=== PATIENT | female | born 1965 | race Caucasian/White ===

== ENCOUNTER 2022-01-20 20:38 | Observation (INO) ==
[2022-01-20 21:20] LABS: Basophils # (auto) 0.08 K/uL (0-0.2); Eosinophils # (auto) 0.01 K/uL (0-0.50); Eosinophils % (auto) 0.2 %; Hematocrit (blood only) 43.4 % (34.1-44.9); Hemoglobin 14.5 g/dl (12.0-16.0); Lymphocytes # (auto) 1.29 K/uL (1.2-3.4); Lymphocytes % (auto) 32.1 %; Mean Corpuscular Hemoglobin 27.6 pg (25.0-34.0); Mean Corpuscular Hgb Conc 33.4 g/dL (32.0-36.0); Mean Corpuscular Volume 82.5 fL (80.0-100.0); Monocytes % (auto) 12.4 %; Neutrophils # (auto) 2.14 K/uL (1.4-6.5); Neutrophils % (auto) 53.3 %; Platelet Count 193 K/uL (130-400); RDW Coefficient of Variation 13.2 % (11.5-14.5); RDW Standard Deviation 39.7 fL (36.4-46.3); Red Blood Count 5.26 M/uL (3.93-5.22); White Blood Count 4.02 K/ul (4.8-10.8)
[2022-01-20 21:41] LABS: Albumin Globulin Ratio 1.3 (0.9-2); Albumin Level 4.3 gm/dl (3.4-5.0); BUN Creatinine Ratio 10.9 (10-20); Bilirubin,Total 0.5 mg/dl (0.2-1.0); Calcium 9.3 mg/dl (8.5-10.1); Creatinine Clr Calc Pharmacy 69.9 ml/min; Est GFR (African American) 71.1 ml/min; Est GFR (Non-African American) 61.3 ml/min; Globulin 3.2 gm/dl (2.5-4.0); Potassium 3.7 mmol/L (3.5-5.1); Total Protein 7.5 gm/dl (6.0-8.3)
[2022-01-20 21:52] LABS: Appearance Urine Clear (Clear); Bacteria Urine Automated Negative (Negative); Bilirubin Urine Negative (Negative); Blood Urine Trace (Negative); Color Urine Yellow; Epithelial Cell Urine Auto 20-30 /lpf (0-5); Glucose Urine UA Negative (Negative); Ketones Urine 2+ (Negative); Leukocyte Esterase Urine Negative (Negative); Nitrite Urine Negative (Negative); Protein Urine Negative (Negative); Urobilinogen Urine Negative (Negative); pH Urine 5.5 (4.5-7.5)
[2022-01-20] MEDS ORDERED: SODIUM CHLORIDE 0.9% 1000ML 1,000 ML IV ONE (21:53)
[2022-01-20 22:07] LABS: RBC Urine Automated 0-4 /hpf (0-4)
[2022-01-20] MEDS ORDERED: ACETAMINOPHEN 1,000 MG/100 ML VIAL IV STA (22:17)
[2022-01-20] MEDS ORDERED: FAMOTIDINE 20MG IV PUSH 20 MG/5 ML SYR IV STA (22:17)
[2022-01-20] MEDS ORDERED: ONDANSETRON INJ 2 MG/ML 2 ML VIAL IV STA (22:17)
--- NOTE | 2022-01-20 22:30 | XRay Report ---
XR chest 1V portable HISTORY: 56 years-old Female fever, cough acute cough with fever COMPARISON: Chest radiograph 01/07/2018 TECHNIQUE: Portable AP view of the chest FINDINGS: The cardiomediastinal and hilar silhouettes are within normal limits. No pneumothorax, pleural effusi on, airspace consolidation or overt pulmonary edema. The bones of the chest appear grossly intact. IMPRESSION: No acute process. ACT 112: Negative or not required by law. The above report was generated using voice recognition software. It may contain grammatical, syntax o r spelling errors. Electronically signed by: Misha Lantigua M.D. 01/20/2022 10:28 PM
[2022-01-20] MEDS ORDERED: OPTIRAY 320 100ml IV ONE (22:53)
--- NOTE | 2022-01-20 23:22 | CT Scan Report ---
ABDOMEN AND PELVIS CT WITH IV CONTRAST CT DOSE: 823.34 mGy.cm HISTORY: Acute fever with nausea, vomiting and diarrhea fever, n/v/d TECHNIQUE: Multiaxial CT images of the abdomen and pelvis were performed following the IV administrat ion of 94 cc of Optiray, A dose lowering technique was utilized adhering to the principles of ALARA. COMPARISON STUDY: None. FINDINGS: Lung bases are generally clear. No pneumatosis or pneumoperitoneum. Unremarkable spleen, pa ncreas and adrenal glands. Distended gallbladder with subcentimeter dependent gallstone versus polyp. The gallbladder wall appears to measure within the upper limits of normal. No pericholecystic infilt ration. Unremarkable liver. Patency of the hepatic and portal veins. No hydronephrosis. Mild nonspecific urinary bladder wall thickening. The uterus and left adnexum. Unr emarkable. Fatty attenuating structure within the right hemipelvis measuring 3.6 cm is suggestive of an ovarian dermoid. There is no abdominal aortic aneurysm or lymphadenopathy. Tiny hiatal hernia. No bowel obstruction or bowel wall thickening. The appendix is fluid-filled and m easures the upper limits of normal at 6 mm. No periappendiceal inflammation. Tiny fat filled periumbi lical hernia. Unremarkable soft tissues. No acute fracture. Probable bone island of the right pubic b one. IMPRESSION: 1. The appendix is fluid-filled and measures within the upper limits of normal at 6 mm. No periappend iceal inflammation. Correlate with patient history and clinical exam findings to exclude early acute appendicitis. 2. Distended gallbladder with a subcentimeter dependent gallstone versus polyp and equivocal wall thi ckening. These findings could be correlated with ultrasound. 3. No bowel obstruction. 4. 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 ACT 112: Negative or not required by law. The above report was generated using voice recognition software. It may contain grammatical, syntax o r spelling errors. Electronically signed by: Misha Lantigua M.D. 01/20/2022 11:19 PM
[2022-01-21] MEDS ORDERED: cefOXitin 2,000 MG/60 ML BAG IV STA (00:20)
--- NOTE | 2022-01-21 01:08 | Emergency Department Note ---
Impression & Plan COVID, Gastroenteritis, Abnormal CT scan, gastrointestinal tract, Abnormal CT scan, gallbladder ED Provider Note NAME: ASHLEY PARHAM AGE: 56 SEX: F ARRIVES VIA: Walk-In INFORMANT: Patient ED PROVIDER(S): Gee Goodwin MD CHIEF COMPLAINT: Abdominal pain, n/v/d. PLAN: Disposition: Admit MEDICAL DECISION MAKING: The patient is a pleasant 56-year-old woman with a past medical history of hypertension who presents to the emergency department accompanied by her for evaluation of symptoms of fever, body aches, nausea and vomiting, cough/co ngestion, and several episodes of loose stool that began today with constellation of symptoms that began on . Patient reports she is vaccinated for COVID-19 including her booster. She denies any known COVID-19 exposures. Her pcp prescribed Bactrim for suspected UTI 2/2 urinary urgency. On arrival the patient is fatigued appearing but no acute distress, afebrile with stable vital signs. She appears clinically dry. Abdominal exam initially demonstrated generalized abdominal tenderness without guarding or rebound. WBC 4K, nonspecific. H/H and platelets within normal limits. Chemistry without metabolic acidosis. Electrolytes LFTs without significant abnormality. Lipase is within normal limits. Procalcitonin is not elevated. UA with 2+ ketones consistent with the patient's clinical dry appearance. Otherwise no convincing evidence of infection. The patient's COVID-[address] of the abdomen pelvis demonstrates fluid-filled appendix measuring within the upper limits of normal at 6 mm but without periappendiceal inflammation. Early appendicitis is considered. Note is also made of a distended gallbladder with dependent gallstone versus polyp with equivocal thickening but no pericholecystic fluid. Incidental note is made of a 3.6 cm right ovarian dermo id. Upon reevaluation the patient now had more isolated/point tenderness in the right lower quadrant and so possibility of appendicitis still exists even with her COVID-19 infection which is suspected to be contributing to her gastroenteritis. Case was discussed with general surgery on-call, Dr. Tellez, who agrees with plan for admission to medicine service for further monitoring and while symptoms are less likely to be appendicitis agrees that this cannot be completely excluded at this time. The patient and her at the bedside agree with plan for admission Case was discussed with Dr. Marcos, [facility] hospitalist, who will evaluate the patient for admission. Triage Nursing notes reviewed and agree them. Prior medical records reviewed Vital Signs: reviewed and remarkable for no significant abnormalities Differential diagnosis: Gastroenteritis, food borne illness, infections, appendicitis, diverticulitis, inflammatory bowel disease, obstruction, GI bleed, biliary pathology, volvulus, as well as other pathologies. ER treatment provided: See below. Diagnostics interpreted by me: Cardiac Monitoring: An order for continuous cardiac monitoring was placed and demonstrated NSR, 82 bpm, no ectopy. Laboratory studies: See below Imaging studies: See below Consultation(s): Dr. Tellez, General surgery on-call. Dr. Marcos, [facility] hospitalist HPI: The patient is a pleasant 56-year-old woman with a past medical history of hypertension who presents to the emergency department accompanied by her for evaluation of symptoms of fever, body aches, nausea and vomiting, cough/congestion, and several episodes of loose stool that began today with constellation of symptoms that began on . Patient reports she is vaccinated for COVID-19 including her booster. She denies any known COVID-19 exposures. Her pcp prescribed Bactrim for suspected UTI 2/2 urinary urgency. ROS: See above HPI for pertinent positives & negatives. A total of 10 systems reviewed and were otherwise negative. VITALS:See Below PHYSICAL EXAMINATION: GENERAL: Awake, alert, uncomfortable-appearing, in no distress HENT: Normocephalic, atraumatic. Oropharynx with dry mucous membranes and otherwise unremarkable. EYES: Normal conjunctiva. Sclera non-icteric. NECK: Supple. No nuchal rigidity. FROM. No JVD. RESPIRATORY: Clear to auscultation. CARDIAC: Regular rate, normal rhythm. Extremities warm and well perfused. Pulses equal. ABDOMEN: Soft, non-distended. Generalized abdominal tenderness initially then with point RLQ tenderness without guarding or rebound. RECTAL: Deferred. MUSCULOSKELETAL: Chest examination reveals no tenderness. The back is sy mmetrical on inspection without obvious abnormality. There is no CVA tenderness to palpation. No joint edema. LOWER EXTREMITIES: Calves are equal size bilaterally and non-tender. No edema. No discoloration. NEURO: Normal sensorium. No sensory or motor deficits noted. SKIN: No rash or jaundice noted. Gee Goodwin MD Past Med/Surg History Medical History Gallstone HTN (hypertension) Family History Other Family history non-contributory Social History Smoking Status: Never smoker Hx Alcohol Use: Yes Alcohol type: hard liquor Hx Substance Use: No Preferred Language: Polish Communication Ability: Effective Medical Radiation Therapist Required: No Beliefs That Will Affect Care: None Current Living Situation: Spouse Other Information That Helps Us Care for You: No Feels Safe at Home: Yes Safety Concerns: Feels Safe At This Time Assistive Devices: Denture - Upper, Denture - Lower and Glasses Allergies Allergies Allergy/AdvReac Type Severity Reaction Status Date / Time No Known Allergies Allergy Verified 01/07/18 13:22 Home Meds Home Medications Medication Instructions Recorded Confirmed Duloxetine HCl (Cymbalta) 20 mg PO DAILY 30 days #30 caps 01/07/18 Lisinopril (Zestril) 5 mg PO DAILY #0 tabs 01/07/18 Results & Data (ED) Vital Signs Vital Signs - 24 hr 01/20/22 23:30 01/21/22 00:00 Pulse Rate [Finger] 54 L 54 L Respiratory Rate 18 18 Respiratory Effort / Characteristics Non-Labored Spontaneous Respiratory Depth Normal Blood Pressure [Right Arm] 133/97 152/77 H Blood Pressure Mean [Right Arm] 109 102 Pulse Oximetry 94 95 Oxygen Delivery Method Room Air Room Air Laboratory Data Attestation: I reviewed the patient's lab results. Result diagrams: 01/21/22 06:02 01/21/22 06:02 Lab Results 01/20/22 01/20/22 01/20/22 Range/Units 21:00 21:00 21:00 WBC 4.02 L (4.8-10.8) K/ul RBC 5.26 H (3.93-5.22) M/uL Hgb 14.5 (12.0-16.0) g/dl Hct 43.4 (34.1-44.9) % MCV 82.5 (80.0-100.0) fL MCH 27.6 (25.0-34.0) pg MCHC 33.4 (32.0-36.0) g/dL RDW Std Deviation 39.7 (36.4-46.3) fL RDW Coeff of Susan 13.2 (11.5-14.5) % Plt Count 193 (130-400) K/uL MPV 10.0 (9.4-12.3) fL Immature Gran % (Auto) 0.0 % Neut % (Auto) 53.3 % Lymph % (Auto) 32.1 % [place] % (Auto) 12.4 % Eos % (Auto) 0.2 % Baso % (Auto) 2.0 % Neut # (Auto) 2.14 (1.4-6.5) K/uL Lymph # (Auto) 1.29 (1.2-3.4) K/uL [place] # (Auto) 0.50 (0.24-0.82) K/uL Eos # (Auto) 0.01 (0-0.50) K/uL Baso # (Auto) 0.08 (0-0.2) K/uL Immature Gran # (Auto) 0.00 (0.00-0.02) K/uL Sodium 135 L (136-145) mmol/L Potassium 3.7 (3.5-5.1) mmol/L Chloride 101 (98-107) mmol/L Carbon Dioxide 23 (21-32) mmol/L Anion Gap 11 (3-11) BUN 11 (6-23) mg/dl Creatinine 1.01 (0.6-1.2) mg/dl Est Cr Clr Drug Dosing 69.9 ml/min Est GFR ( Amer) 71.1 ml/min Est GFR (Non-Af Amer) 61.3 ml/min BUN/Creatinine Ratio 10.9 (10-20) Glucose 87 (70-99(Fasting)) mg/dl Lactate (0.4-2.0) mmol/L Calcium 9.3 (8.5-10.1) mg/dl Total Bilirubin 0.5 (0.2-1.0) mg/dl AST 18 (13-39) U/L ALT 15 (7-52) U/L Alkaline Phosphatase 93 (34-104) U/L Total Protein 7.5 (6.0-8.3) gm/dl Albumin 4.3 (3.4-5.0) gm/dl Globulin 3.2 (2.5-4.0) gm/dl Albumin/Globulin Ratio 1.3 (0.9-2) Lipase 12 (11-82) U/L Procalcitonin (0-0.5) ng/ml Urine Color Yellow Urine Appearance Clear (Clear) Urine pH 5.5 (4.5-7.5) Ur Specific Essie 1.020 (1.000-1.030) Urine Protein Negative (Negative) Urine Glucose (UA) Negative (Negative) Urine Ketones 2+ H (Negative) Urine Blood Trace H (Negative) Urine Nitrite Negative (Negative) Urine Bilirubin Negative (Negative) Urine Urobilinogen Negative (Negative) Ur Leukocyte Esterase Negative (Negative) Urine WBC (Auto) 1-5 (0-5) /hpf Urine RBC (Auto) 0-4 (0-4) /hpf U Hyaline Cast (Auto) 1-5 (0-5) /lpf U Epithel Cells (Auto) 20-30 H (0-5) /lpf Urine Bacteria (Auto) Negative (Negative) SARS-CoV-2 (PCR) (Negative) 01/20/22 01/20/22 01/21/22 Range/Units 21:00 23:15 00:40 WBC (4.8-10.8) K/ul RBC (3.93-5.22) M/uL Hgb (12.0-16.0) g/dl Hct (34.1-44.9) % MCV (80.0-100.0) fL MCH (25.0-34.0) pg MCHC (32.0-36.0) g/dL RDW Std Deviation (36.4-46.3) fL RDW Coeff of Susan (11.5-14.5) % Plt Count (130-400) K/uL MPV (9.4-12.3) fL Immature Gran % (Auto) % Neut % (Auto) % Lymph % (Auto) % [place] % (Auto) % Eos % (Auto) % Baso % (Auto) % Neut # (Auto) (1.4-6.5) K/uL Lymph # (Auto) (1.2-3.4) K/uL [place] # (Auto) (0.24-0.82) K/uL Eos # (Auto) (0-0.50) K/uL Baso # (Auto) (0-0.2) K/uL Immature Gran # (Auto) (0.00-0.02) K/uL Sodium (136-145) mmol/L Potassium (3.5-5.1) mmol/L Chloride (98-107) mmol/L Carbon Dioxide (21-32) mmol/L Anion Gap (3-11) BUN (6-23) mg/dl Creatinine (0.6-1.2) mg/dl Est Cr Clr Drug Dosing ml/min Est GFR ( Amer) ml/min Est GFR (Non-Af Amer) ml/min BUN/Creatinine Ratio (10-20) Glucose (70-99(Fasting)) mg/dl Lactate 0.7 (0.4-2.0) mmol/L Calcium (8.5-10.1) mg/dl Total Bilirubin (0.2-1.0) mg/dl AST (13-39) U/L ALT (7-52) U/L Alkaline Phosphatase (34-104) U/L Total Protein (6.0-8.3) gm/dl Albumin (3.4-5.0) gm/dl Globulin (2.5-4.0) gm/dl Albumin/Globulin Ratio (0.9-2) Lipase (11-82) U/L Procalcitonin 0.11 (0-0.5) ng/ml Urine Color Urine Appearance (Clear) Urine pH (4.5-7.5) Ur Specific Essie (1.000-1.030) Urine Protein (Negative) Urine Glucose (UA) (Negative) Urine Ketones (Negative) Urine Blood (Negative) Urine Nitrite (Negative) Urine Bilirubin (Negative) Urine Urobilinogen (Negative) Ur Leukocyte Esterase (Negative) Urine WBC (Auto) (0-5) /hpf Urine RBC (Auto) (0-4) /hpf U Hyaline Cast (Auto) (0-5) /lpf U Epithel Cells (Auto) (0-5) /lpf Urine Bacteria (Auto) (Negative) SARS-CoV-2 (PCR) POSITIVE A* (Negative) Administered Medications Acetaminophen (Acetaminophen 325 Mg Tab) 650 mg PO Q4H PRN PRN Reason: Pain Stop: 02/20/22 11:32 Last Admin: 01/21/22 12:00 Dose: 650 mg Documented By: ERICA Ceftriaxone Sodium 2,000 mg/ (Dextrose) 70 mls @ 100 mls/hr IV DAILY ANTELMO; Protocol Stop: 01/31/22 08:59 Last Infusion: 01/21/22 11:23 Dose: 0 mls/hr Documented By: Admin: 01/21/22 10:39 Dose: 100 mls/hr Documented By: CR Lactated Ringer's (Lr) 1,000 mls @ 80 mls/hr IV .[id number] ANTELMO Stop: 02/20/22 04:02 Last Admin: 01/21/22 17:24 Dose: 80 mls/hr Documented By: Infusion: 01/21/22 17:24 Dose: 80 mls/hr Documented By: Infusion: 01/21/22 11:23 Dose: 80 mls/hr Documented By: Infusion: 01/21/22 10:41 Dose: 0 mls/hr Documented By: Admin: 01/21/22 04:44 Dose: 80 mls/hr Documented By: DANIEL Famotidine 20 mg/ Syringe 5 mls @ 2.5 mls/min IV Q12H ANTELMO Stop: 02/20/22 08:59 Last Admin: 01/21/22 20:57 Dose: 2.5 mls/min Documented By: Admin: 01/21/22 10:39 Dose: 2.5 mls/min Documented By: ERICA Ondansetron HCl (Ondansetron Inj 2 Mg/Ml 2 Ml Vial) 4 mg IV Q6H PRN PRN Reason: Nausea Stop: 02/20/22 04:02 Last Admin: 01/21/22 17:32 Dose: 4 mg Documented By: ERICA Discontinued Medications Sodium Chloride (Nss 1000ml) 1,000 mls @ 999 mls/hr IV .[id number] ONE Stop: 01/20/22 22:53 Last Infusion: 01/21/22 00:17 Dose: 0 mls/hr Documented By: Admin: 01/20/22 23:23 Dose: 999 mls/hr Documented By: CATHY Acetaminophen (Ofirmev) 1,000 mg in 100 mls @ 400 mls/hr IV NOW STA Stop: 01/20/22 22:31 Last Infusion: 01/21/22 00:16 Dose: 0 mls/hr Documented By: Admin: 01/20/22 23:24 Dose: 400 mls/hr Documented By: BS Famotidine (Pepcid 20mg Iv Push) 20 mg in 5 mls @ 2.5 mls/min IV NOW STA Stop: 01/20/22 22:18 Last Admin: 01/20/22 22:28 Dose: 2.5 mls/min Documented By: BS Cefoxitin Sodium (Mefoxin) 2,000 mg in 60 mls @ 100 mls/hr IV NOW STA Stop: 01/21/22 00:55 Last Infusion: 01/21/22 04:18 Dose: 0 mls/hr Documented By: Admin: 01/21/22 00:56 Dose: 100 mls/hr Documented By: BS Ioversol (Optiray 320 100ml) 94 ml IV ONCE ONE Stop: 01/20/22 22:54 Last Admin: 01/20/22 22:53 Dose: 94 ml Documented By: ALICIA Ondansetron HCl (Ondansetron Inj 2 Mg/Ml 2 Ml Vial) 4 mg IV NOW STA Stop: 01/20/22 22:18 Last Admin: 01/20/22 22:28 Dose: 4 mg Documented By: CATHY Imaging Data Radiologist's Impression: Abdomen/Pelvis CT 01/20/22 22:[address] WITH IV CONTRAST CT DOSE: 823.34 mGy.cm HISTORY: Acute fever with nausea, vomiting and diarrhea fever, n/v/d TECHNIQUE: Multiaxial CT images of the abdomen and pelvis were performed following the IV administration of 94 cc of Optiray, A dose lowering technique was utilized adhering to the principles of ALARA. COMPARISON STUDY: None. FINDINGS: Lung bases are generally clear. No pneumatosis or pneumoperitoneum. Unremarkable spleen, pancreas and adrenal glands. Distended gallbladder with subcentimeter dependent gallstone versus polyp. The gallbladder wall appears to measure within the upper limits of normal. No pericholecystic infiltration. Unremarkable liver. Patency of the hepatic and portal veins. No hydronephrosis. Mild nonspecific urinary bladder wall thickening. The uterus and left adnexum. Unremarkable. Fatty attenuating structure within the right hemipelvis measuring 3.6 cm is suggestive of an ovarian dermoid. There is no abdominal aortic aneurysm or lymphadenopathy. Tiny hiatal hernia. No bowel obstruction or bowel wall thickening. The appendix is fluid-filled and measures the upper limits of normal at 6 mm. No periappendiceal inflammation. Tiny fat filled periumbilical hernia. Unremarkable soft tissues. No acute fracture. Probable bone island of the right pubic bone. IMPRESSION: 1. The appendix is fluid-filled and measures within the upper limits of normal at 6 mm. No periappendiceal inflammation. Correlate with patient history and clinical exam findings to exclude early acute appendicitis. 2. Distended gallbladder with a subcentimeter dependent gallstone versus polyp and equivocal wall thickening. These findings could be correlated with ultrasound. 3. No bowel obstruction. 4. 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 ACT 112: Negative or not required by law. The above report was generated using voice recognition software. It may contain grammatical, syntax or spelling errors. Electronically signed by: Misha Lantigua M.D. 01/20/2022 11:19 PM Chest X-Ray 01/20/22 22:17 XR chest 1V portable HISTORY: 56 years-old Female fever, cough acute cough with fever COMPARISON: Chest radiograph 01/07/2018 TECHNIQUE: Portable AP view of the chest FINDINGS: The cardiomediastinal and hilar silhouettes are within normal limits. No pneumothorax, pleural effusion, airspace consolidation or overt pulmonary edema. The bones of the chest appear grossly intact. IMPRESSION: No acute process. ACT 112: Negative or not required by law. The above report was generated using voice recognition software. It may contain grammatical, syntax or spelling errors. Electronically signed by: Misha Lantigua M.D. 01/20/2022 10:28 PM Discharge Plan Visit Data Chief Complaint: Abdominal Pain Stated Complaint: ABDOMINAL PAIN, DIARRHEA, VOMITING ED Provider: Gee Goodwin Discharge Problem: COVID, Gastroenteritis, Abnormal CT scan, gastrointestinal tract, Abnormal CT scan, gallbladder Patient Disposition: Admitted As Inpatient Discharge Instructions Interventions: ED Discharge Assessment Last Done: 01/21/22 03:25
--- NOTE | 2022-01-21 02:08 | History & Physical Report ---
Date of Service January 21, 2022 Assessment & Plan (1) Nausea, vomiting and diarrhea: Plan: Nausea, vomiting, diarrhea/with abdominal pain right upper quadrant Across epigastrium to left upper quadrant- CT scan shows appendix to be fluid-filled and measured within the upper limits of normal at 6 mm with no periappendiceal inflammation but with suggestion to assess clinical exam findings to exclude early acute appendicitis. CT scan also showed distended gallbladder with a subcentimeter dependent gallstone versus polyp and equivocal wall thickening, with findings to be correlated with ultrasound. There was no bowel obstruction. There was a 3.6 cm right ovarian dermoid. NPO Order ultrasound right upper quadrant of abdomen Order HIDA scan Ceftriaxone 2 g IV every 24 hours. Zofran 4 mg IV every 6 hours as needed Famotidine 20 mg IV every 12 hours (2) Abdominal pain: Plan: See above (3) HTN (hypertension): Plan: Hold lisinopril (4) Migraines: Plan: Hold duloxetine (5) Paresthesia: Plan: Hold duloxetine (6) Abnormal CT scan, gallbladder: Plan: Ordering ultrasound as noted (7) Abnormal CT scan, gastrointestinal tract: Plan: ED physician contacted general surgery, who felt this was not an early appendicitis, and asked that the patient be admitted to medicine History of Present Illness Chief Complaint: The patient presents to the emergency department with complaint of right upper quadrant pain extending across epigastrium to left side of abdomen, nausea and vomiting, for 2 days, several episodes of loose stools that began today. Primary Care Provider: Lizbeth Pierce MD The patient is a 56-year-old female with a past medical history including hypertension, migraines, paresthesias, headaches who presents with symptoms as noted above. She denies any recent travels or sick exposures. She denies any unusual ingestions of food or liquids. Significant abnormal imaging: CT of abdomen pelvis shows a distended gallbladder with dependent gallstone with suggestion for verification with ultrasound. There is also a 3.6 cm right ovarian dermoid cyst. Chest x-ray was negative. Ultrasound of the right upper quadrant has been ordered and is pending. Patient was given follow treatment by the ED: Cefoxitin 2 g IV, normal saline 1 L bolus, Tylenol 1 g IV, famotidine 20 mg IV. Significant abnormal laboratories: Patient was COVID-19 positive Allergies Allergy/AdvReac Type Severity Reaction Status Date / Time No Known Allergies Allergy Verified 01/07/18 13:22 Home Medications Medication Instructions Recorded Confirmed Type Duloxetine HCl (Cymbalta) 20 mg PO DAILY 30 days #30 caps 01/07/18 History Lisinopril (Zestril) 5 mg PO DAILY #0 tabs 01/07/18 History Past Med/Surg History Social History Smoking Status: Never smoker Hx Alcohol Use: Yes Alcohol type: hard liquor Hx Substance Use: No Preferred Language: Lao Communication Ability: Effective Residential Nurse Required: No Beliefs That Will Affect Care: None Current Living Situation: Spouse Other Information That Helps Us Care for You: No Feels Safe at Home: Yes Safety Concerns: Feels Safe At This Time Assistive Devices: Denture - Upper, Denture - Lower and Glasses Review of Systems Review of Systems: The patient denies chest pain, palpitations, shortness of breath, dyspnea on exertion, cough, lower extremity swelling, blood in urine or stool, dysuria, urinary frequency or urgency, lightheadedness, dizziness, headache, memory loss, loss of consciousness, rash, abnormal bruising or bleeding, imbalance, focal or generalized weakness, numbness or tingling in arms or legs, generalized arthralgias or myalgias, back or neck pain, or night sweats. The review of systems is otherwise negative other than for that already noted above, and at least 10 systems have been reviewed. Physical Exam Physical Exam: The patient is awake, alert and oriented 3, well developed and well nourished, normocephalic and atraumatic, lying in bed and in no acute distress. HEENT--PERRL, EOMI, mucous membranes and oropharynx dry. Neck--supple. No JVD. No bruits. Thyroid normal, trachea midline, no adenopathy. Heart--normal S1 and S2. No murmurs, rubs or gallops. Lungs--clear bilaterally, no respiratory distress, no accessory muscle use. Abdomen--normal bowel sounds and soft. Mild tenderness from right upper quadrant across epigastrium. Nondistended, no hernias or masses, no organomegaly. Extremities--no cyanosis or clubbing. No edema. Dermatologic--normal skin turgor, normal color, no abnormal lymph nodes, no rash. Neurologic--cranial nerves II through XII grossly intact. Rheumatologic--normal range of motion. Psychiatric--normal affect. Results & Data Results & Data ([facility]) Vital Signs (Past 12 Hours) Vital Signs Temp Pulse Pulse Resp BP Pulse Ox O2 Del Method 01/21/22 00:00 54 L 18 152/77 H 95 Room Air 01/20/22 23:30 54 L 18 133/97 94 Room Air 01/20/22 22:55 58 L 22 172/75 H 95 Room Air 01/20/22 20:42 36.2 C L 82 20 97 Room Air Laboratory Results Laboratory Results WBC 4.02 K/ul (4.8-10.8) L 01/20/22 21:00 RBC 5.26 M/uL (3.93-5.22) H 01/20/22 21:00 Hgb 14.5 g/dl (12.0-16.0) 01/20/22 21:00 Hct 43.4 % (34.1-44.9) 01/20/22 21:00 MCV 82.5 fL (80.0-100.0) 01/20/22 21:00 MCH 27.6 pg (25.0-34.0) 01/20/22 21:00 MCHC 33.4 g/dL (32.0-36.0) 01/20/22 21:00 RDW Std Deviation 39.7 fL (36.4-46.3) 01/20/22 21:00 RDW Coeff of Susan 13.2 % (11.5-14.5) 01/20/22 21:00 Plt Count 193 K/uL (130-400) 01/20/22 21:00 MPV 10.0 fL (9.4-12.3) 01/20/22 21:00 Immature Gran % (Auto) 0.0 % 01/20/22 21:00 Neut % (Auto) 53.3 % 01/20/22 21:00 Lymph % (Auto) 32.1 % 01/20/22 21:00 Liberty % (Auto) 12.4 % 01/20/22 21:00 Eos % (Auto) 0.2 % 01/20/22 21:00 Baso % (Auto) 2.0 % 01/20/22 21:00 Neut # (Auto) 2.14 K/uL (1.4-6.5) 01/20/22 21:00 Lymph # (Auto) 1.29 K/uL (1.2-3.4) 01/20/22 21:00 Liberty # (Auto) 0.50 K/uL (0.24-0.82) 01/20/22 21:00 Eos # (Auto) 0.01 K/uL (0-0.50) 01/20/22 21:00 Baso # (Auto) 0.08 K/uL (0-0.2) 01/20/22 21:00 Immature Gran # (Auto) 0.00 K/uL (0.00-0.02) 01/20/22 21:00 Sodium 135 mmol/L (136-145) L 01/20/22 21:00 Potassium 3.7 mmol/L (3.5-5.1) 01/20/22 21:00 Chloride 101 mmol/L (98-107) 01/20/22 21:00 Carbon Dioxide 23 mmol/L (21-32) 01/20/22 21:00 Anion Gap 11 (3-11) 01/20/22 21:00 BUN 11 mg/dl (6-23) 01/20/22 21:00 Creatinine 1.01 mg/dl (0.6-1.2) 01/20/22 21:00 Est Cr Clr Drug Dosing 69.9 ml/min 01/20/22 21:00 Est GFR ( Amer) 71.1 ml/min 01/20/22 21:00 Est GFR (Non-Af Amer) 61.3 ml/min 01/20/22 21:00 BUN/Creatinine Ratio 10.9 (10-20) 01/20/22 21:00 Glucose 87 mg/dl (70-99(Fasting)) 01/20/22 21:00 Lactate 0.7 mmol/L (0.4-2.0) 01/21/22 00:40 Calcium 9.3 mg/dl (8.5-10.1) 01/20/22 21:00 Total Bilirubin 0.5 mg/dl (0.2-1.0) 01/20/22 21:00 AST 18 U/L (13-39) 01/20/22 21:00 ALT 15 U/L (7-52) 01/20/22 21:00 Alkaline Phosphatase 93 U/L (34-104) 01/20/22 21:00 Total Protein 7.5 gm/dl (6.0-8.3) 01/20/22 21:00 Albumin 4.3 gm/dl (3.4-5.0) 01/20/22 21:00 Globulin 3.2 gm/dl (2.5-4.0) 01/20/22 21:00 Albumin/Globulin Ratio 1.3 (0.9-2) 01/20/22 21:00 Lipase 12 U/L (11-82) 01/20/22 21:00 Procalcitonin 0.11 ng/ml (0-0.5) 01/20/22 21:00 Urine Color Yellow 01/20/22 21:00 Urine Appearance Clear (Clear) 01/20/22 21:00 Urine pH 5.5 (4.5-7.5) 01/20/22 21:00 Ur Specific Victoria 1.020 (1.000-1.030) 01/20/22 21:00 Urine Protein Negative (Negative) 01/20/22 21:00 Urine Glucose (UA) Negative (Negative) 01/20/22 21:00 Urine Ketones 2+ (Negative) H 01/20/22 21:00 Urine Blood Trace (Negative) H 01/20/22 21:00 Urine Nitrite Negative (Negative) 01/20/22 21:00 Urine Bilirubin Negative (Negative) 01/20/22 21:00 Urine Urobilinogen Negative (Negative) 01/20/22 21:00 Ur Leukocyte Esterase Negative (Negative) 01/20/22 21:00 Urine WBC (Auto) 1-5 /hpf (0-5) 01/20/22 21:00 Urine RBC (Auto) 0-4 /hpf (0-4) 01/20/22 21:00 U Hyaline Cast (Auto) 1-5 /lpf (0-5) 01/20/22 21:00 U Epithel Cells (Auto) 20-30 /lpf (0-5) H 01/20/22 21:00 Urine Bacteria (Auto) Negative (Negative) 01/20/22 21:00 SARS-CoV-2 (PCR) POSITIVE (Negative) A* 01/20/22 23:15 Impressions Abdomen/Pelvis CT 01/20/22 22:[address] WITH IV CONTRAST CT DOSE: 823.34 mGy.cm HISTORY: Acute fever with nausea, vomiting and diarrhea fever, n/v/d TECHNIQUE: Multiaxial CT images of the abdomen and pelvis were performed following the IV administration of 94 cc of Optiray, A dose lowering technique was utilized adhering to the principles of ALARA. COMPARISON STUDY: None. FINDINGS: Lung bases are generally clear. No pneumatosis or pneumoperitoneum. Unremarkable spleen, pancreas and adrenal glands. Distended gallbladder with subcentimeter dependent gallstone versus polyp. The gallbladder wall appears to measure within the upper limits of normal. No pericholecystic infiltration. Unremarkable liver. Patency of the hepatic and portal veins. No hydronephrosis. Mild nonspecific urinary bladder wall thickening. The uterus and left adnexum. Unremarkable. Fatty attenuating structure within the right hemipelvis measuring 3.6 cm is suggestive of an ovarian dermoid. There is no abdominal aortic aneurysm or lymphadenopathy. Tiny hiatal hernia. No bowel obstruction or bowel wall thickening. The appendix is fluid-filled and measures the upper limits of normal at 6 mm. No periappendiceal inflammation. Tiny fat filled periumbilical hernia. Unremarkable soft tissues. No acute fracture. Probable bone island of the right pubic bone. IMPRESSION: 1. The appendix is fluid-filled and measures within the upper limits of normal at 6 mm. No periappendiceal inflammation. Correlate with patient history and clinical exam findings to exclude early acute appendicitis. 2. Distended gallbladder with a subcentimeter dependent gallstone versus polyp and equivocal wall thickening. These findings could be correlated with ultrasound. 3. No bowel obstruction. 4. 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 ACT 112: Negative or not required by law. The above report was generated using voice recognition software. It may contain grammatical, syntax or spelling errors. Electronically signed by: Misha Lantigua M.D. 01/20/2022 11:19 PM Chest X-Ray 01/20/22 22:17 XR chest 1V portable HISTORY: 56 years-old Female fever, cough acute cough with fever COMPARISON: Chest radiograph 01/07/2018 TECHNIQUE: Portable AP view of the chest FINDINGS: The cardiomediastinal and hilar silhouettes are within normal limits. No pneumothorax, pleural effusion, airspace consolidation or overt pulmonary edema. The bones of the chest appear grossly intact. IMPRESSION: No acute process. ACT 112: Negative or not required by law. The above report was generated using voice recognition software. It may contain grammatical, syntax or spelling errors. Electronically signed by: Misha Lantigua M.D. 01/20/2022 10:28 PM Code Status & VTE Plan Code Status Full code VTE Prophylaxis Plan VTE Prophylaxis will be ordered: Yes PG Care Time/CCT Total # of Minutes Spent Total Time Spent with Patient: Total time spent is greater than 50% in coordination of care (as documented) at patient's floor/unit and/or counseling patient: Coding Level of Care Code INT OBSERVATION CARE 70M LVL 3 Diagnoses Nausea, vomiting and diarrhea R11.2; R19.7 Abdominal pain R10.9 HTN (hypertension) I10 Migraines G43.[address] scan, gallbladder R93.[address] scan, gastrointestinal tract R93.3
[2022-01-21] MEDS ORDERED: ONDANSETRON INJ 2 MG/ML 2 ML VIAL IV PRN (04:03)
[2022-01-21] MEDS: LACTATED RINGER'S 1,000 ML IV SCH ×2 (04:44→17:24)
[2022-01-21 07:02] LABS: Basophils # (auto) 0.05 K/uL (0-0.2); Basophils % (auto) 1.6 %; Eosinophils # (auto) 0.03 K/uL (0-0.50); Hemoglobin 13.1 g/dl (12.0-16.0); Lymphocytes # (auto) 1.31 K/uL (1.2-3.4); Mean Corpuscular Hemoglobin 27.3 pg (25.0-34.0); Mean Corpuscular Volume 85.6 fL (80.0-100.0); Mean Platelet Volume 10.2 fL (9.4-12.3); Monocytes # (auto) 0.42 K/uL (0.24-0.82); Monocytes % (auto) 13.8 %; Neutrophils # (auto) 1.24 K/uL (1.4-6.5); Neutrophils % (auto) 40.6 %; Platelet Count 161 K/uL (130-400); RDW Coefficient of Variation 13.2 % (11.5-14.5); RDW Standard Deviation 41.6 fL (36.4-46.3); Red Blood Count 4.79 M/uL (3.93-5.22); White Blood Count 3.05 K/ul (4.8-10.8)
--- NOTE | 2022-01-21 07:20 | Ultrasound Report ---
ABDOMINAL ULTRASOUND, RIGHT UPPER QUADRANT HISTORY: abnormal CT, Nausea and abdominal pain. COMPARISON: None. FINDINGS: Pancreas: The pancreas demonstrates a normal echotexture. Liver: Unremarkable. Gallbladder: The gallbladder is distended and contains a subcentimeter stone. No gallbladder wall thi ckening. Negative sonographic Hathaway sign. CBD: 4 mm. Right kidney: No hydronephrosis. IMPRESSION: 1. Mildly distended gallbladder containing a small stone. However, no gallbladder wall thickening. 2. Normal liver. 3. Normal caliber common bile duct ACT 112: Negative or not required by law. Electronically signed by: Gautam Hernandez M.D. 01/21/2022 7:19 AM
[2022-01-21 07:38] LABS: Albumin Globulin Ratio 1.4 (0.9-2); Albumin Level 3.8 gm/dl (3.4-5.0); BUN Creatinine Ratio 10.6 (10-20); Bilirubin,Total 0.4 mg/dl (0.2-1.0); Calcium 8.6 mg/dl (8.5-10.1); Creatinine Clr Calc Pharmacy 75.9 ml/min; Est GFR (African American) 77.5 ml/min; Est GFR (Non-African American) 66.9 ml/min; Globulin 2.7 gm/dl (2.5-4.0); Potassium 4.1 mmol/L (3.5-5.1); Total Protein 6.5 gm/dl (6.0-8.3)
[2022-01-21] MEDS ORDERED: cefTRIAXone SODIUM 2,000 MG in DEXTROSE 5% 50 ML IV SCH (09:00)
--- NOTE | 2022-01-21 09:53 | Surgery Consultation ---
Date of Consultation January 21, 2022 Assessment & Plan (1) Gallstone: woulkd obsreve onw more night con't IVF clear liquid diet as tolerated with COVID positive and improving symptoms would recommend delayed cholecystectomy as outpatient appendix likely not the issue will check again tomorrow if continues to improve can discharge in AM and I will see as outpatient Present on Admission?: Yes History of Present Illness Attending Physician: Shonna Choudhury MD History of Present Illness The patient is 56-year-old female who presented with right upper quadrant pain extending across epigastrium to left side of abdomen, nausea and vomiting for 2 days. She has had multiple episodes of this but last nights was the worst. Much better this AM. A CT of her abdomen pelvis shows a distended gallbladder with dependent gallstone. There is also a 3.6 cm right ovarian dermoid cyst. Ultrasound of the right upper quadrant shows stones but no acute signs of cholecystitis. The patient is COVID-19 positive wit a mild cough. Allergies Allergies Allergy/AdvReac Type Severity Reaction Status Date / Time No Known Allergies Allergy Verified 01/07/18 13:22 Home Medications Medication Instructions Recorded Confirmed Type Duloxetine HCl (Cymbalta) 20 mg PO DAILY 30 days #30 caps 01/07/18 History Lisinopril (Zestril) 5 mg PO DAILY #0 tabs 01/07/18 History Patient History Medical History (Updated 01/21/22 @ 09:54 by Aj Tellez MD) Gallstone Social History Smoking Status: Never smoker Hx Alcohol Use: Yes Alcohol type: hard liquor Hx Substance Use: No Preferred Language: Nepali Communication Ability: Effective Mask Design Engineer Required: No Beliefs That Will Affect Care: None Current Living Situation: Spouse Other Information That Helps Us Care for You: No Feels Safe at Home: Yes Safety Concerns: Feels Safe At This Time Assistive Devices: Denture - Upper, Denture - Lower and Glasses Review of Systems Constitutional: + fatigue; no fever, no chills, no sweats and no body aches Eyes: no problem reported Ear, Nose, Mouth, Throat: no problem reported Respiratory: + cough; no dyspnea Cardiovascular: no chest pain and no chest pain with activity Gastrointestinal: + abdominal pain, + nausea, + vomiting, + change in bowel habits and + diarrhea/loose stools; no coffee ground emesis Genitourinary: no dysuria Musculoskeletal: no back pain Integumentary: no rash and no lesions Neurologic: no localized weakness and no generalized weakness Psychiatric: no behavioral changes Physical Exam Constitutional: WD/WN, vitals as above Eyes: PERRL, conjunctivae normal, anicteric sclerae ENMT: external ear and nose normal, oropharynx normal Neck: trachea midline Respiratory: normal respiratory effort, lungs clear to auscultation Cardiovascular: RRR, no murmur, no edema Gastrointestinal (Abdomen): Inspection/Auscultation: abdomen normal to inspection and normal bowel sounds; abdomen not distended Percussion/Palpation: + abdomen tender (RUQ) and abdomen soft; no hernia Musculoskeletal: Head/Neck/Chest: normocephalic and head atraumatic Skin: no rashes, warm and dry Results & Data ([facility]) Vital Signs (Past 12 Hours) Vital Signs Temp Pulse Resp BP Pulse Ox O2 Del Method 01/21/22 03:40 36.7 C 53 L 17 168/79 H 95 Room Air 01/21/22 00:00 54 L 18 152/77 H 95 Room Air 01/20/22 23:30 54 L 18 133/97 94 Room Air 01/20/22 22:55 58 L 22 172/75 H 95 Room Air Diagnostic Findings ABDOMINAL ULTRASOUND, RIGHT UPPER QUADRANT HISTORY: abnormal CT, Nausea and abdominal pain. COMPARISON: None. FINDINGS: Pancreas: The pancreas demonstrates a normal echotexture. Liver: Unremarkable. Gallbladder: The gallbladder is distended and contains a subcentimeter stone. No gallbladder wall thickening. Negative sonographic Hathaway sign. CBD: 4 mm. Right kidney: No hydronephrosis. IMPRESSION: 1. Mildly distended gallbladder containing a small stone. However, no gallbladder wall thickening. 2. Normal liver. 3. Normal caliber common bile duct
[2022-01-21] MEDS: FAMOTIDINE 20 MG in SYRINGE 3 ML IV SCH ×2 (10:39→20:57)
[2022-01-21] MEDS ORDERED: ACETAMINOPHEN 325 MG TAB PO PRN (11:33)
--- NOTE | 2022-01-21 16:21 | Hospitalist Progress Note ---
Date of Service January 21, 2022 Assessment & Plan (1) Nausea, vomiting and diarrhea: Plan: Patient presents with Nausea, vomiting, diarrhea/with abdominal pain right upper quadrant Across epigastrium to left upper quadrant- CT scan shows appendix to be fluid-filled and measured within the upper limits of normal at 6 mm with no periappendiceal inflammation but with suggestion to assess clinical exam findings to exclude early acute appendicitis. CT scan also showed distended gallbladder with a subcentimeter dependent gallstone versus polyp and equivocal wall thickening, with findings to be correlated with ultrasound. There was no bowel obstruction. There was a 3.6 cm right ovarian dermoid. RUQ US shows distended gall bladder and stone, no evidence of cholecystitis HIDA scan pending, to be done on sunday Has been evaluated by gen surgery, plan is outpatient surgery after acute covid infection resolves Ceftriaxone 2 g IV every 24 hours. Zofran 4 mg IV every 6 hours as needed Famotidine 20 mg IV every 12 hours (2) COVID: Plan: No symptoms saturating well on room air (3) Abdominal pain: Plan: See above (4) HTN (hypertension): Plan: Hold lisinopril (5) Migraines: Plan: Hold duloxetine (6) Paresthesia: Plan: Hold duloxetine (7) Abnormal CT scan, gallbladder: Plan: Ordering ultrasound as noted (8) Abnormal CT scan, gastrointestinal tract: Plan: ED physician contacted general surgery, who felt this was not an early appendicitis, and asked that the patient be admitted to medicine Plan hopefully d/c in the next 24 hrs Admission and Anticipated Discharge Date Admission Date: January 21, 2022 Subjective patient seen and examined, still has some abdominal pain, but nausea and vomiting better Review of Systems Review of Systems: All systems reviewed are negative, apart from the ones contained in the history. Physical Exam Physical Exam: The patient is awake, alert and oriented 3, well developed and well nourished, normocephalic and atraumatic, lying in bed and in no acute distress. HEENT--PERRL, EOMI, mucous membranes and oropharynx mildly dry Neck--supple. No JVD. No bruits. Thyroid normal, trachea midline, no adenopathy. Heart--normal S1 and S2. No murmurs, rubs or gallops. Lungs--clear bilaterally, no respiratory distress, no accessory muscle use. Abdomen--RUQ tenderness Extremities--no cyanosis or clubbing. No edema. Dermatologic--normal skin turgor, normal color, no abnormal lymph nodes, no rash. Neurologic--cranial nerves II through XII grossly intact. Rheumatologic--normal range of motion. Psychiatric--normal affect. Results & Data Results & Data ([facility]) Vital Signs (Past 12 Hours) Vital Signs Temp Pulse Resp BP BP Pulse Ox O2 Del Method 01/21/22 16:08 98.2 F 53 L 16 134/82 94 Room Air 01/21/22 11:50 54 L 16 147/81 H 92 Room Air 01/21/22 07:55 Room Air PG Care Time/CCT Total # of Minutes Spent Total Time Spent with Patient: Total time spent is greater than 50% in coordination of care (as documented) at patient's floor/unit and/or counseling patient: Coding Level of Care Code 10702 Subseq Hosp Care Lvl 2 Diagnoses Nausea, vomiting and diarrhea R11.2; R19.7 COVID U07.1 Abdominal pain R10.9 HTN (hypertension) I10 Migraines G43.[address] scan, gallbladder R93.[address] scan, gastrointestinal tract R93.3 Time Spent (min) 35
[2022-01-21 17:51] LABS: Adenovirus F 40/41 PCR Not Detected (NotDetected); Astrovirus PCR Not Detected (NotDetected); Campylobacter PCR Not Detected (NotDetected); Clostridium diff Toxin A/B PCR Not Detected (NotDetected); Cryptosporidium PCR Not Detected (NotDetected); Cyclospora cayetanensis PCR Not Detected (NotDetected); E.coli O157 PCR Not Detected (NotDetected); Entamoeba histolytica PCR Not Detected (NotDetected); Enteroaggregative E.coli(EAEC) Not Detected (NotDetected); Enterotoxigenic E.coli (ETEC) Not Detected (NotDetected); Giardia lamblia PCR Not Detected (NotDetected); Norovirus GI/GII PCR Not Detected (NotDetected); Plesiomonas shigelloides PCR Not Detected (NotDetected); Rotavirus A PCR Not Detected (NotDetected); Salmonella PCR Not Detected (NotDetected); Sapovirus PCR Not Detected (NotDetected); Shigella/Enteroinvasive E.coli Not Detected (NotDetected); Vibrio cholerae PCR Not Detected (NotDetected); Vibrio species PCR Not Detected (NotDetected); Yersinia enterocolitica PCR Not Detected (NotDetected)
[2022-01-21 18:02] LABS: Shiga-like Toxin E.coli (STEC) DETECTED (NotDetected)
[2022-01-22] MEDS: LACTATED RINGER'S 1,000 ML IV SCH (04:52)
[2022-01-22 05:54] LABS: Hematocrit (blood only) 39.3 % (34.1-44.9); Hemoglobin 12.9 g/dl (12.0-16.0); Mean Corpuscular Hemoglobin 27.7 pg (25.0-34.0); Mean Corpuscular Hgb Conc 32.8 g/dL (32.0-36.0); Mean Corpuscular Volume 84.5 fL (80.0-100.0); Mean Platelet Volume 10.1 fL (9.4-12.3); Platelet Count 169 K/uL (130-400); RDW Coefficient of Variation 13.1 % (11.5-14.5); RDW Standard Deviation 40.3 fL (36.4-46.3); Red Blood Count 4.65 M/uL (3.93-5.22); White Blood Count 2.55 K/ul (4.8-10.8)
[2022-01-22 06:17] LABS: Albumin Globulin Ratio 1.4 (0.9-2); Albumin Level 3.7 gm/dl (3.4-5.0); BUN Creatinine Ratio 8.5 (10-20); Bilirubin,Total 0.4 mg/dl (0.2-1.0); Calcium 8.5 mg/dl (8.5-10.1); Est GFR (African American) 91.4 ml/min; Est GFR (Non-African American) 78.9 ml/min; Globulin 2.6 gm/dl (2.5-4.0); Potassium 4.2 mmol/L (3.5-5.1); Total Protein 6.3 gm/dl (6.0-8.3)
[2022-01-22 06:28] LABS: Basophils # (auto) 0.05 K/uL (0-0.2); Eosinophils # (auto) 0.11 K/uL (0-0.50); Eosinophils % (auto) 4.3 %; Lymphocytes # (auto) 1.29 K/uL (1.2-3.4); Lymphocytes % (auto) 50.6 %; Monocytes # (auto) 0.34 K/uL (0.24-0.82); Monocytes % (auto) 13.3 %; Neutrophils # (auto) 0.76 K/uL (1.4-6.5); Neutrophils % (auto) 29.8 %
--- NOTE | 2022-01-22 06:37 | Communication Note ---
Date of Service: January 22, 2022 Notified of ANC 0.76.
[2022-01-22] MEDS ORDERED: metroNIDAZOLE 500 MG/100 ML BAG IV SCH (08:15)
[2022-01-22] MEDS ORDERED: CIPROFLOXACIN / D5W 200 MG/100 ML BAG IV SCH (09:00)
--- NOTE | 2022-01-22 09:09 | Surgery Progress Note ---
Date of Service January 22, 2022 Assessment & Plan (1) Gallstone: Plan: symptomatic cholelithiasis, will see as outpatient and plan lap malcolm once COVID infection cleared appendix not issue discharge per medical team appt with Geoff, 1 week Present on Admission?: Yes Admission and Anticipated Discharge Date Admission Date: January 21, 2022 Subjective some nausea with food intake but pain resolved no fevers or vomiting Review of Systems Constitutional: no fever, no chills and no anorexia Eyes: no problem reported Respiratory: + cough; no dyspnea Cardiovascular: no chest pain Gastrointestinal: + nausea; no abdominal pain, no vomiting and no diarrhea/loose stools Genitourinary: no dysuria Musculoskeletal: + back pain Integumentary: no rash and no lesions Neurologic: no localized weakness and no generalized weakness Psychiatric: no behavioral changes Physical Exam Constitutional: well developed and well nourished Eyes: PERRL, conjunctivae normal, anicteric sclerae ENMT: external ear and nose normal, oropharynx normal Neck: trachea midline Respiratory: normal respiratory effort, lungs clear to auscultation Cardiovascular: RRR, no murmur, no edema Gastrointestinal (Abdomen): Inspection/Auscultation: abdomen normal to inspection and normal bowel sounds; abdomen not distended Percussion/Palpation: abdomen soft; abdomen nontender, no guarding and abdomen not rigid Musculoskeletal: Head/Neck/Chest: normocephalic and head atraumatic Skin: no rashes, warm and dry Results & Data ([facility]) Vital Signs (Past 12 Hours) Vital Signs Temp Pulse Resp BP Pulse Ox O2 Del Method 01/22/22 08:24 36.6 C 51 L 18 146/82 H 98 Room Air 01/21/22 21:28 36.5 C 51 L 16 142/78 H 96 Room Air
[2022-01-22] MEDS: FAMOTIDINE 20 MG in SYRINGE 3 ML IV SCH (10:08)
--- NOTE | 2022-01-22 16:05 | Discharge Summary ---
Date of Service January 22, 2022 Admission HPI Per Admitting Provider The patient is a 56-year-old female with a past medical history including hypertension, migraines, paresthesias, headaches who presents with symptoms as noted above. She denies any recent travels or sick exposures. She denies any unusual ingestions of food or liquids. Significant abnormal imaging: CT of abdomen pelvis shows a distended gallbladder with dependent gallstone with suggestion for verification with ultrasound. There is also a 3.6 cm right ovarian dermoid cyst. Chest x-ray was negative. Ultrasound of the right upper quadrant has been ordered and is pending. Patient was given follow treatment by the ED: Cefoxitin 2 g IV, normal saline 1 L bolus, Tylenol 1 g IV, famotidine 20 mg IV. Significant abnormal laboratories: Patient was COVID-19 positive Principal Diagnosis shiga toxin gastroenteritis Discharge Exam The patient is awake, alert and oriented 3, well developed and well nourished, normocephalic and atraumatic, lying in bed and in no acute distress. HEENT--PERRL, EOMI, mucous membranes and oropharynx mildly dry Neck--supple. No JVD. No bruits. Thyroid normal, trachea midline, no adeno viraj. Heart--normal S1 and S2. No murmurs, rubs or gallops. Lungs--clear bilaterally, no respiratory distress, no accessory muscle use. Abdomen--RUQ tenderness Extremities--no cyanosis or clubbing. No edema. Dermatologic--normal skin turgor, normal color, no abnormal lymph nodes, no rash. Neurologic--cranial nerves II through XII grossly intact. Rheumatologic--normal range of motion. Psychiatric--normal affect. Discharge Data Allergies Allergy/AdvReac Type Severity Reaction Status Date / Time No Known Allergies Allergy Verified 01/07/18 13:22 Consultations 01/21/22 00:36 ED Decision to Admit Stat 01/21/22 08:51 Consult General Surgery Routine Ordered Studies 01/20/22 22:17 CT abd pelvis IV con only Stat 01/21/22 01:00 US RUQ [US liver] Urgent Hospital Course (1) Nausea, vomiting and diarrhea: Patient presents with Nausea, vomiting, diarrhea/with abdominal pain right upper quadrant Across epigastrium to left upper quadrant- CT scan shows appendix to be fluid-filled and measured within the upper limits of normal at 6 mm with no periappendiceal inflammation but with suggestion to assess clinical exam findings to exclude early acute appendicitis. CT scan also showed distended gallbladder with a subcentimeter dependent gallstone versus polyp and equivocal wall thickening, with findings to be correlated with ultrasound. There was no bowel obstruction. There was a 3.6 cm right ovarian dermoid. RUQ US shows distended gall bladder and stone, no evidence of cholecystitis stool studies positive for shiga toxin e coli Has been evaluated by gen surgery, plan is outpatient surgery after acute covid infection resolves Ceftriaxone 2 g IV every 24 hours. Zofran 4 mg IV every 6 hours as needed Famotidine 20 mg IV every 12 hours (2) COVID: No symptoms saturating well on room air (3) Abdominal pain: See above (4) HTN (hypertension): Hold lisinopril (5) Migraines: Hold duloxetine (6) Paresthesia: Hold duloxetine (7) Abnormal CT scan, gallbladder: Ordering ultrasound as noted (8) Abnormal CT scan, gastrointestinal tract: ED physician contacted general surgery, who felt this was not an early appendicitis, and asked that the patient be admitted to medicine (9) Shiga toxin 1 and Shiga toxin 2 detected: Plan hopefully d/c in the next 24 hrs Total Time Total Time Spent Total Time Spent (In Minutes): 35 Discharge Plan Discharge Items Patient Disposition: Home - Self-Care Reason For Visit: ABDOMINAL PAIN, ABNL CT, COVID-19 INFECTION Discharge Diagnosis: Shiga Toxin gastroenteritis Activity: Resume your previous activity Non-emergency contact: Primary Care Provider Call non-emergency contact if: you have any medication questions Follow-up/Referrals: Lizbeth Pierce MD [Primary Care Provider] - Aj Tellez MD [Physician] - (schedule appointment 01/30 at [facility]) Diet: Regular Addtl Attending Provider Instructions: please make sure your meat is cooked properly, avoid unpasteurized milk, wash your hands frequently and maintain good hygiene Please make appointment to follow up with surgery Pending Studies at Discharge: No Stand-Alone Forms: My igobubble, Smoking Cessation Medications and DC Order Prescriptions: Continued Duloxetine HCl (Cymbalta) 20 MG capsule 20 mg PO DAILY 30 Days Qty: 30 Lisinopril (Zestril) 5 MG tablet 5 mg PO DAILY Qty: 0 Discharge Orders: Discharge Order (Routine); Ordered 01/22/22 Ordered By: Shonna Lanier/Other Patient Handouts: Gallstones Dc Admission Data Admit Date/Time: 01/21/22 02:07 Attending Provider: Shonna Choudhury Admit Provider: Arbam Marcos Primary Care Provider: Lizbeth Pierce Other Providers: Abram Marcos ; Aj Tellez Other Interventions: Discharge Summary Assessment (RN) Last Done: 01/22/22 11:50 Coding Level of Care Code D/C DAY MANAGEMENT >30 MINS Diagnoses Nausea, vomiting and diarrhea R11.2; R19.7 COVID U07.1 Abdominal pain R10.9 HTN (hypertension) I10 Migraines G43.[address] scan, gallbladder R93.[address] scan, gastrointestinal tract R93.3 Shiga toxin 1 and Shiga toxin 2 detected B96.23 Time Spent (min) 35
== END 2022-01-22 12:59 | disposition home or self-care (01) ==
LOC: ED 20:38 → 3E 20:38 → SUATTDRO 01-21 02:07 → 3E 01-21 03:25
DX: R19.7 Diarrhea, unspecified; U07.1 COVID-19; R10.12 Left upper quadrant pain; R93.2 Abnormal findings on diagnostic imaging of liver and biliary tract; K80.20 Calculus of gallbladder without cholecystitis without obstruction; I10 Essential (primary) hypertension; R93.3 Abnormal findings on diagnostic imaging of other parts of digestive tract; R11.2 Nausea with vomiting, unspecified; Z79.899 Other long term (current) drug therapy